=== PATIENT | male | born 1975 | race Caucasian/White ===

== ENCOUNTER 2016-10-07 10:39 | Outpatient (CLI) ==
[2015-07-16 15:18] VITALS: BMI 29.4
[2016-10-07 11:35] LABS: ALBUMIN 4.2 g/dL (3.4-5.0); ALBUMIN/GLOBULIN RATIO 1.45; ANION GAP 12.6; BILIRUBIN,TOTAL 0.52 mg/dL (0.00-1.20); BUN/CREATININE RATIO 8.57; CALCIUM 9.6 mg/dL (8.2-10.2); CREATININE 1.4 mg/dL (0.60-1.10); POTASSIUM 4.6 mmol/L (3.5-5.1); TOTAL PROTEIN 7.1 g/dL (6.4-8.2)
== END 2016-10-07 10:40 | disposition home or self-care (01) ==
LOC: LAB 10:39
PROVIDERS: ATTEND Physician Assistant
DX: Z79.899 Other long term (current) drug therapy (principal)
CPT/HCPCS: 36415; 80053

== ENCOUNTER 2017-09-29 19:20 | Outpatient (CLI) ==
[2015-07-16 15:18] VITALS: BMI 29.4
== END 2017-09-29 19:21 | disposition expired ==
LOC: AMBL 19:20
PROVIDERS: ATTEND Family Medicine
DX: S01.90XA Unspecified open wound of unspecified part of head, initial encounter